=== PATIENT | female | born 2005 | race Two or more races ===

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

== ENCOUNTER 2024-07-12 07:55 | Outpatient (CLI) | payer OTHER | END 2024-07-12 07:57 | disposition home or self-care (01) | LOC: TOM 07:55 | DX: J32.4 Chronic pansinusitis (principal) ==

== ENCOUNTER 2024-09-11 10:13 | Outpatient (CLI) | payer OTHER | END 2024-09-11 10:18 | disposition home or self-care (01) | LOC: RAD 10:13 | DX: M99.01 Segmental and somatic dysfunction of cervical region (principal) ==